=== PATIENT | female | born 1985 | race Caucasian/White ===

== ENCOUNTER → 2019-11-29 | Outpatient (REF) | payer MEDICAID, SELFPAY ==
[~2019-11-29] MED LIST: ACET65TA PO; AVEL1TAB2 PO; BACT400T OR; BACTRIM OR; IBUP80TA PO
== END ==
LOC: M SFHCLERA 10:33
PROVIDERS: ATTEND Nurse Practitioner
DX: R30.9 Painful micturition, unspecified (principal)

== ENCOUNTER 2020-09-02 12:01 | Emergency (ER) | payer MEDICAID, SELFPAY ==
[~2020-09-02] VITALS: Ht 165.1 cm; Wt 59.8 kg
[2020-09-02] MEDS ORDERED: AMOX500C (12:08)
[2020-09-02] MEDS ORDERED: ACET-897 PO (12:08)
[2020-09-02 13:59] LABS: BASO # 0.1 10^3/uL (0.0-0.2); BASO % 0.4 % (0.0-1.0); EOS % 0.3 % (0.0-3.0); HEMATOCRIT 39.7 % (36.0-47.0); HEMOGLOBIN 13.2 g/dl (12.0-15.5); LYMPH # 1.2 10^3/uL (1.5-5.0); LYMPH % 10.1 % (24.0-44.0); MEAN CORPUSCULAR HEMOGLOBIN 31.2 pg (27.0-33.0); MEAN CORPUSCULAR HGB CONC 33.2 g/dl (32.0-36.5); MEAN CORPUSCULAR VOLUME 93.9 fl (80.0-96.0); NEUTROPHILS # 9.2 10^3/uL (1.5-8.5); NEUTROPHILS % 79.9 % (36.0-66.0); PLATELET COUNT, AUTOMATED 352 10^3/uL (150-450); RED BLOOD COUNT 4.23 10^6/uL (4.00-5.40); WHITE BLOOD COUNT 11.5 10^3/uL (4.0-10.0)
[2020-09-02 14:12] LABS: BLOOD UREA NITROGEN 9 MG/DL (7-18); C REACTIVE PROTEIN QUANTITATIV 9.48 MG/DL (0.00-0.30); CALCIUM LEVEL 9.2 MG/DL (8.5-10.1); CARBON DIOXIDE LEVEL 30 MEQ/L (21-32); CHLORIDE LEVEL 102 MEQ/L (98-107); CREATININE FOR GFR 0.74 MG/DL (0.55-1.30); GLOMERULAR FILTRATION RATE > 60.0 (>60); GLUCOSE, FASTING 141 MG/DL (70-100); POTASSIUM SERUM 3.8 MEQ/L (3.5-5.1); SODIUM LEVEL 136 MEQ/L (136-145)
[2020-09-02 14:15] LABS: HCG, SERUM QUALITATIVE NEGATIVE (NEGATIVE)
[2020-09-02] MEDS ORDERED: AMPICILLIN SOD/SULBACTAM SOD 3 GM in D5W MINI-BAG PLUS 100 ML IV ONE (14:30)
[2020-09-02] MEDS ORDERED: KETOROLAC 30 MG/ML 1ML VIAL IV ONE (14:30)
[2020-09-02 14:52] LABS: ERYTHROCYTE SEDIMENTATION RATE 41 mm/hr (0-20)
[2020-09-02] MEDS ORDERED: IBUP-1022 PO (16:02)
[2020-09-02] MEDS ORDERED: AUGM875T28 PO (16:02)
[2020-09-02 16:12] VITALS: BP 112/67
== END 2020-09-02 16:12 | disposition home or self-care (01) ==
LOC: M ED 12:01
DX: K04.7 Periapical abscess without sinus (principal); K08.89 Other specified disorders of teeth and supporting structures
CPT/HCPCS: 36415; 80048; 84703; 85025; 85652; 86140; 96365; 96375; 99284; J1885